=== PATIENT | male | born 1930 | race Two or more races ===

== ENCOUNTER 2017-10-16 07:48 | Emergency (ER) | payer MEDICARE ==
[~2017-10-16] VITALS: Ht 167.6 cm; Wt 72.6 kg
[~2017-10-16 07:48] MED LIST: ACET325 PO; AMLO10 PO; ASPI81EC PO; CAYENNE; ELIQUIS2.5 MG PO; LEVFLO250; METO50 PO; OXYC5; Papaya Enzyme1 EAC1; SIMV20 PO; TAMS.4ER
[2017-10-16 09:39] LABS: BASOPHILS ABSOLUTE AUTO 0.05 K/mm3 (0.00-0.23); BASOPHILS PERCENT AUTO 1 % (0-2); EOSINOPHILS ABSOLUTE AUTO 0.07 K/mm3 (0.00-0.68); EOSINOPHILS PERCENT AUTO 1 % (0-6); Hematocrit 40.9 % (37.0-53.0); Hemoglobin 12.8 g/dL (13.5-17.5); IMMATURE GRAN ABSOLUTE AUTO 0.02 K/mm3 (0.00-0.10); IMMATURE GRAN PERCENT AUTO 0 % (0-1); LYMPHOCYTES ABSOLUTE AUTO 1.64 K/mm3 (0.84-5.20); LYMPHOCYTES PERCENT AUTO 23 % (21-46); MONOCYTES ABSOLUTE AUTO 0.64 K/mm3 (0.16-1.47); MONOCYTES PERCENT AUTO 9 % (4-13); Mean Corpuscular HGB 30.5 pg (26.0-34.0); Mean Corpuscular HGB Conc 31.3 g/dL (31.5-36.5); Mean Corpuscular Volume 98 fL (80-100); Mean Platelet Volume 10.5 fL (9.1-12.4); NEUTROPHILS ABSOLUTE AUTO 4.83 K/mm3 (1.96-9.15); NEUTROPHILS PERCENT AUTO 67 % (41-73); Platelet Count 165 K/mm3 (150-400); RDW Coefficient Variation 15.6 % (11.7-14.2); RDW Standard Deviation 54.8 fL (35.1-46.3); Red Blood Cell Count 4.19 M/mm3 (4.30-5.90); White Blood Cell Count 7.25 K/mm3 (4.00-11.30)
[2017-10-16 09:59] LABS: Albumin, Blood 3.6 g/dL (3.4-5.0); Bilirubin, Total 0.8 mg/dL (0.1-1.0); Calcium, Blood 8.9 mg/dL (8.5-10.1); Creatinine, Blood 1.67 mg/dL (0.60-1.20); Globulin, Blood 3.5 g/dL (2.2-4.0); Total Protein, Blood 7.1 g/dL (6.4-8.2)
== END 2017-10-16 11:51 | disposition home or self-care (01) ==
LOC: ER 07:48
PROVIDERS: Emergency Medicine
DX: R41.0 Disorientation, unspecified (principal); Z87.891 Personal history of nicotine dependence; Z79.899 Other long term (current) drug therapy
CPT/HCPCS: 70450; 71046; 80053; 85025; 93005; 93010; 99284

== ENCOUNTER 2018-01-26 09:49 | Inpatient (IN) | payer MEDICARE, OTHER ==
[~2018-01-26] VITALS: Ht 167.6 cm; Wt 69.4 kg
[2018-01-26 10:33] LABS: BASOPHILS ABSOLUTE AUTO 0.04 K/mm3 (0.00-0.23); BASOPHILS PERCENT AUTO 1 % (0-2); EOSINOPHILS ABSOLUTE AUTO 0.02 K/mm3 (0.00-0.68); EOSINOPHILS PERCENT AUTO 0 % (0-6); Hematocrit 37.1 % (37.0-53.0); Hemoglobin 11.6 g/dL (13.5-17.5); IMMATURE GRAN ABSOLUTE AUTO 0.05 K/mm3 (0.00-0.10); IMMATURE GRAN PERCENT AUTO 1 % (0-1); LYMPHOCYTES ABSOLUTE AUTO 1.07 K/mm3 (0.84-5.20); LYMPHOCYTES PERCENT AUTO 13 % (21-46); MONOCYTES ABSOLUTE AUTO 0.79 K/mm3 (0.16-1.47); MONOCYTES PERCENT AUTO 9 % (4-13); Mean Corpuscular HGB 30.2 pg (26.0-34.0); Mean Corpuscular HGB Conc 31.3 g/dL (31.5-36.5); Mean Corpuscular Volume 97 fL (80-100); Mean Platelet Volume 10.4 fL (9.1-12.4); NEUTROPHILS ABSOLUTE AUTO 6.52 K/mm3 (1.96-9.15); NEUTROPHILS PERCENT AUTO 77 % (41-73); Platelet Count 154 K/mm3 (150-400); RDW Coefficient Variation 17.4 % (11.7-14.2); RDW Standard Deviation 61.4 fL (35.1-46.3); Red Blood Cell Count 3.84 M/mm3 (4.30-5.90); White Blood Cell Count 8.49 K/mm3 (4.00-11.30)
[2018-01-26 11:08] LABS: Albumin, Blood 3.6 g/dL (3.4-5.0); Albumin/Globulin Ratio 1.1 (0.8-1.8); Bun/Creatinine Ratio 18.4 (12.0-20.0); Calcium, Blood 8.7 mg/dL (8.5-10.1); Creatinine, Blood 1.74 mg/dL (0.60-1.20); Globulin, Blood 3.3 g/dL (2.2-4.0); Potassium, Blood 4.5 mmol/L (3.5-5.5); Total Protein, Blood 6.9 g/dL (6.4-8.2); Troponin I 0.118 ng/mL (0.000-0.040)
[2018-01-26 11:11] LABS: Thyroid Stimulating Hormone 4.47 uIU/mL (0.360-4.800)
[2018-01-26 11:50] LABS: pH Blood Venous 7.35 (7.34-7.37)
[2018-01-26 11:51] LABS: Base Excess Venous 2.2 mmol/L; Bicarbonate Venous 25.7 mmol/L (24.0-30.0); PCO2 Venous 50 mmHg (38-42); PO2 Venous 111 mmHg (38-42)
[2018-01-26] MEDS ORDERED: METO25 PO (16:00)
[2018-01-26] MEDS ORDERED: FURO20 PO (16:01)
[2018-01-26] MEDS ORDERED: Micro-K10 MEQ PO (16:02)
[2018-01-26] MEDS ORDERED: AMLO5 PO (16:03)
[2018-01-26 20:32] LABS: Bun/Creatinine Ratio 19.6 (12.0-20.0); Calcium, Blood 8.6 mg/dL (8.5-10.1); Creatinine, Blood 1.94 mg/dL (0.60-1.20); Potassium, Blood 3.8 mmol/L (3.5-5.5)
[2018-01-27 06:15] LABS: Hematocrit 36.6 % (37.0-53.0); Hemoglobin 11.7 g/dL (13.5-17.5); Mean Corpuscular Volume 94 fL (80-100); Mean Platelet Volume 10.4 fL (9.1-12.4); Platelet Count 152 K/mm3 (150-400); RDW Coefficient Variation 16.8 % (11.7-14.2); RDW Standard Deviation 57.3 fL (35.1-46.3); White Blood Cell Count 6.11 K/mm3 (4.00-11.30)
[2018-01-27 06:34] LABS: Bun/Creatinine Ratio 21.6 (12.0-20.0); Calcium, Blood 8.6 mg/dL (8.5-10.1); Creatinine, Blood 1.76 mg/dL (0.60-1.20); Potassium, Blood 3.5 mmol/L (3.5-5.5)
[2018-01-27 09:50] LABS: Creatine Kinase MB 2.7 ng/mL (0.0-3.6); Creatine Kinase MB Index 5.1 (0.0-4.0); Magnesium, Blood 2.3 mg/dL (1.6-2.4); Phosphorus, Blood 3.5 mg/dL (2.5-4.9); Troponin I 0.086 ng/mL (0.000-0.040)
[2018-01-27 13:39] LABS: Source, Urine Catheter
[2018-01-27 13:47] LABS: Bilirubin, Urine Neg (Neg); Blood, Urine 3+ (Neg); Glucose Qualitative, Urine Neg (Neg); Ketones, Urine Neg (Neg); Leukocyte Esterase, Urine Neg (Neg); Nitrite, Urine Neg (Neg); Protein, Urine Neg (Neg); Urobilinogen, Urine NORM (Normal)
[2018-01-27 14:21] LABS: Appearance, Urine Clear (Clear); Color, Urine Yellow (P-Yellow)
[2018-01-27 14:22] LABS: Bacteria Rare /hpf; Squamous Epithelial Cells Rare /hpf (Few); White Blood Cells, Urine Not Seen /hpf (0-5)
[2018-01-28 04:29] LABS: Anion Gap 7 mmol/L (6-16); Blood Urea Nitrogen 35 mg/dL (8-24); CO2, Blood 34 mmol/L (21-32); Calcium, Blood 8.4 mg/dL (8.5-10.1); Chloride, Blood 106 mmol/L (98-108); Creatinine, Blood 1.67 mg/dL (0.60-1.20); Glomerular Filtration Rate 41 (60-); Glucose, Blood 94 mg/dL (70-99); Phosphorus, Blood 4.1 mg/dL (2.5-4.9); Sodium, Blood 147 mmol/L (136-145)
[2018-01-28 05:08] LABS: PCO2 Arterial 53.9 mmHg (35-45); PO2 Arterial 64.2 mmHg (80-100); pH Blood Arterial 7.43 (7.35-7.45)
[2018-01-29 04:24] LABS: Hematocrit 38.1 % (37.0-53.0); Hemoglobin 12.3 g/dL (13.5-17.5); Mean Corpuscular HGB 30.1 pg (26.0-34.0); Mean Corpuscular HGB Conc 32.3 g/dL (31.5-36.5); Mean Corpuscular Volume 93 fL (80-100); Mean Platelet Volume 10.2 fL (9.1-12.4); Platelet Count 144 K/mm3 (150-400); RDW Coefficient Variation 16.1 % (11.7-14.2); RDW Standard Deviation 54.6 fL (35.1-46.3); Red Blood Cell Count 4.08 M/mm3 (4.30-5.90); White Blood Cell Count 6.65 K/mm3 (4.00-11.30)
[2018-01-29 04:41] LABS: Albumin, Blood 2.8 g/dL (3.4-5.0); Anion Gap 7 mmol/L (6-16); Blood Urea Nitrogen 41 mg/dL (8-24); Bun/Creatinine Ratio 24.3 (12.0-20.0); CO2, Blood 32 mmol/L (21-32); Chloride, Blood 105 mmol/L (98-108); Creatinine, Blood 1.69 mg/dL (0.60-1.20); Glomerular Filtration Rate 41 (60-); Glucose, Blood 89 mg/dL (70-99); Phosphorus, Blood 3.7 mg/dL (2.5-4.9); Potassium, Blood 3.6 mmol/L (3.5-5.5); Sodium, Blood 144 mmol/L (136-145)
[2018-01-29] MEDS ORDERED: AZIT500 PO (11:45)
[2018-01-29] MEDS ORDERED: CEFU500T30 PO (11:45)
[2018-01-29] MEDS ORDERED: FURO20 PO (11:46)
[2018-01-29] MEDS ORDERED: Acidophilus La100 GM PO (11:47)
[2018-01-29] MEDS ORDERED: Micro-K10 MEQ PO (11:47)
[2018-01-29] MEDS ORDERED: TAMS.4ER PO (14:05)
== END 2018-01-29 18:21 | disposition home or self-care (01) | DRG 871 ==
LOC: ER 09:49 → PCU 12:41
PROVIDERS: Emergency Medicine; Internal Medicine
DX: A41.9 Sepsis, unspecified organism (principal); J18.9 Pneumonia, unspecified organism; J96.21 Acute and chronic respiratory failure with hypoxia; I50.33 Acute on chronic diastolic (congestive) heart failure; I47.2 Ventricular tachycardia; I42.9 Cardiomyopathy, unspecified; I13.0 Hypertensive heart and chronic kidney disease with heart failure and stage 1 through stage 4 chronic kidney disease, or unspecified chronic kidney disease; I25.10 Atherosclerotic heart disease of native coronary artery without angina pectoris; Z95.5 Presence of coronary angioplasty implant and graft; K21.9 Gastro-esophageal reflux disease without esophagitis; G47.33 Obstructive sleep apnea (adult) (pediatric); E78.5 Hyperlipidemia, unspecified; Z87.891 Personal history of nicotine dependence; Z66 Do not resuscitate; I48.2 Chronic atrial fibrillation; Z99.81 Dependence on supplemental oxygen; Z91.19 Patient's noncompliance with other medical treatment and regimen; R33.9 Retention of urine, unspecified; Z79.01 Long term (current) use of anticoagulants; I95.9 Hypotension, unspecified; I73.9 Peripheral vascular disease, unspecified; Z96.653 Presence of artificial knee joint, bilateral; N13.9 Obstructive and reflux uropathy, unspecified; N40.1 Benign prostatic hyperplasia with lower urinary tract symptoms; I35.0 Nonrheumatic aortic (valve) stenosis; N18.3 Chronic kidney disease, stage 3 (moderate)
CPT/HCPCS: 36415; 36600; 71045; 71046; 80048; 80053; 80069; 81001; 82550; 82553; 82803; 83605; 83735; 83880; 84100; 84145; 84443; 84484; 85025; 85027; 87040; 93005; 93010; 93306; 93971; 94640; 94660; 94762; 96365; 96375; 97161; 97166; 97535; 99285-25; G8978; G8979; G8980; G8987; G8988; J0456; J0696; J1940; J7050; J7070

== ENCOUNTER → 2018-02-23 | Outpatient (CLI) | payer MEDICARE, OTHER ==
[~2018-02-23] MED LIST changes: +AMLO5 PO; +AZIT500 PO; +Acidophilus La100 GM PO; +CEFU500T30 PO; +FURO20 PO; +METO25 PO; +Micro-K10 MEQ PO; +TAMS.4ER PO
== END | disposition home or self-care (01) ==
LOC: LAB 10:19 → LAB SHORT 10:19
DX: N39.0 Urinary tract infection, site not specified (principal); R33.9 Retention of urine, unspecified
CPT/HCPCS: 87086

== ENCOUNTER → 2018-03-05 | Outpatient (CLI) | payer MEDICARE, OTHER ==
[2018-03-09 11:50] LABS: Protein, Urine Quantitative 19.9 mg/dL (0.0-11.9)
[2018-03-09 11:53] LABS: Microalbumin, Urine Quant. 69.7 mg/L (0.000-20.000)
== END | disposition home or self-care (01) ==
LOC: LAB 07:02 → LAB SHORT 07:02
PROVIDERS: Internal Medicine Nephrology
DX: I12.9 Hypertensive chronic kidney disease with stage 1 through stage 4 chronic kidney disease, or unspecified chronic kidney disease (principal); N18.3 Chronic kidney disease, stage 3 (moderate); D63.1 Anemia in chronic kidney disease; E87.70 Fluid overload, unspecified; R80.0 Isolated proteinuria; R73.09 Other abnormal glucose
CPT/HCPCS: 81050; 82043; 82570; 84156

== ENCOUNTER → 2018-03-31 | Outpatient (CLI) | payer MEDICARE, OTHER ==
[2018-04-02 12:16] LABS: Creatinine Urine 52.4 mg/dL (27.00-270.00)
== END | disposition home or self-care (01) ==
LOC: LAB 12:16 → LAB SHORT 04-01 12:16
PROVIDERS: Internal Medicine Nephrology
DX: N18.3 Chronic kidney disease, stage 3 (moderate) (principal); D63.1 Anemia in chronic kidney disease; N25.81 Secondary hyperparathyroidism of renal origin; E55.9 Vitamin D deficiency, unspecified; E78.00 Pure hypercholesterolemia, unspecified; R76.9 Abnormal immunological finding in serum, unspecified; R94.5 Abnormal results of liver function studies; R94.6 Abnormal results of thyroid function studies; N40.0 Benign prostatic hyperplasia without lower urinary tract symptoms
CPT/HCPCS: 81050; 82530; 82570